=== PATIENT | female | born 1955 | race American Indian/Alaskan Native ===

== ENCOUNTER 2016-08-18 18:26 | Inpatient (IN) | payer MEDICARE ==
[2016-08-18] MEDS ORDERED: NACL 0.9% 1000 ML 1,000 ML IV ONE (20:57)
[2016-08-18] MEDS ORDERED: ZOFRAN IV ONE (20:57)
[2016-08-18] MEDS ORDERED: PEPCID IV ONE (20:57)
[2016-08-18] MEDS ORDERED: BENTYL IM ONE (20:58)
--- NOTE | 2016-08-18 20:59 | Emergency Department Report ---
ED General Adult HPI - General Chief complaint: Abdominal Pain Stated complaint: N/V/D/FAINTING Time Seen by Provider: 08/18/16 20:41 Source: patient, family, RN notes reviewed Mode of arrival: Ambulatory Limitations: No Limitations - History of Present Illness Initial comments: This is a 61-year-old female. She is previously unknown to me. Her primary care doctor is in [facility]. Past medical history includes rheumatoid arthritis, hypertension, congestive heart failure, GERD, neuropathy. She can't recall the name of her crutch maker, she does not know what her ejection fraction is. She reports a colonoscopy last year, which he indicates was "negative." The patient presents to the ER complaining of diffuse abdominal pain, nausea, vomiting and diarrhea. The pain is achy. It is "all over." It increases with palpation, and decreases with rest. The patient and family indicated the patient has vomited over 20 times. They indicate some clear emesis and some red emesis. They also indicate bloody diarrhea. No recent antibiotic use. No recent travel. No chest pain. No shortness of breath. Positive generalized weakness, positive dizziness. Symptoms have been constant for the past day or so, they're getting worse. -: Gradual Location: abdomen Quality: aching Improves with: rest Worsens with: movement Associated Symptoms: fever/chills, loss of appetite, malaise, nausea/vomiting, weakness - Related Data Home Medications Medication Instructions Recorded Confirmed Last Taken Adalimumab [Humira Pen] 40 mg SQ Q2W 08/19/16 08/19/16 Unknown Cyclobenzaprine [Flexeril 10 MG 10 mg PO BID 08/19/16 08/19/16 Unknown TAB] HYDROcodone/APAP 7.5-325 [[place] 1 each PO Q8HR PRN 08/19/16 08/19/16 Unknown 7.5-325 mg TAB] Leflunomide 10 mg PO QDAY 08/19/16 08/19/16 Unknown SUMAtriptan SUCCINATE [SUMAtriptan 100 mg PO BID 08/19/16 08/19/16 Unknown Succinate] Verapamil ER [Calan SR] 240 mg PO QDAY 08/19/16 08/19/16 Unknown busPIRone [Buspar] 15 mg PO BID 08/19/16 08/19/16 Unknown clonazePAM [Klonopin] 1 mg PO BID 08/19/16 08/19/16 Unknown predniSONE [Deltasone] 5 mg PO QDAY 08/19/16 08/19/16 Unknown Previous Rx's Medication Instructions Recorded Last Taken Type Ciprofloxacin HCl [Ciprofloxacin 500 mg PO BID #10 tablet 08/20/16 Unknown Rx TAB] Furosemide [Lasix TAB] 40 mg PO QDAY tablet 08/20/16 Unknown Rx Allergies Allergy/AdvReac Type Severity Reaction Status Date / Time No Known Allergies Allergy Unverified 08/18/16 19:39 ED Review of Systems ROS: Stated complaint: N/V/D/FAINTING Other details as noted in HPI Constitutional: malaise, weakness Eyes: denies: vision change ENT: denies: epistaxis Respiratory: denies: cough, shortness of breath Cardiovascular: denies: chest pain Gastrointestinal: abdominal pain, nausea, vomiting, diarrhea, hematemesis, hematochezia Genitourinary: as per HPI Musculoskeletal: denies: back pain Skin: denies: lesions Neurological: weakness Psychiatric: anxiety ED Past Medical Hx - Past Medical History Previous Medical History?: Yes Hx Hypertension: Yes Hx Arthritis: Yes Additional medical history: neuropathy, - Surgical History Past Surgical History?: Yes Additional Surgical History: Heart surgery - Social History Smoking Status: Former Smoker Substance Use Type: None - Medications Home Medications: Home Medications Medication Instructions Recorded Confirmed Last Taken Type Adalimumab [Humira Pen] 40 mg SQ Q2W 08/19/16 08/19/16 Unknown History Cyclobenzaprine [Flexeril 10 MG 10 mg PO BID 08/19/16 08/19/16 Unknown History TAB] HYDROcodone/APAP 7.5-325 [[place] Rios 1 each PO Q8HR PRN 08/19/16 08/19/16 Unknown History 7.5-325 mg TAB] Leflunomide 10 mg PO QDAY 08/19/16 08/19/16 Unknown History SUMAtriptan SUCCINATE [SUMAtriptan 100 mg PO BID 08/19/16 08/19/16 Unknown History Succinate] Verapamil ER [Calan SR] 240 mg PO QDAY 08/19/16 08/19/16 Unknown History busPIRone [Buspar] 15 mg PO BID 08/19/16 08/19/16 Unknown History clonazePAM [Klonopin] 1 mg PO BID 08/19/16 08/19/16 Unknown History predniSONE [Deltasone] 5 mg PO QDAY 08/19/16 08/19/16 Unknown History Ciprofloxacin HCl [Ciprofloxacin 500 mg PO BID #10 tablet 08/20/16 Unknown Rx TAB] Furosemide [Lasix TAB] 40 mg PO QDAY tablet 08/20/16 Unknown Rx ED Physical Exam - General Limitations: Physical Limitation General appearance: alert, in distress - Head Head exam: Present: atraumatic, normocephalic - Eye Eye exam: Present: normal appearance, EOMI. Absent: nystagmus - ENT ENT exam: Present: mucous membranes dry - Neck Neck exam: Present: normal inspection, full ROM. Absent: tenderness, meningismus - Respiratory Respiratory exam: Present: normal lung sounds bilaterally. Absent: respiratory distress, wheezes, rales, rhonchi, stridor, decreased breath sounds - Cardiovascular Cardiovascular Exam: Present: regular rate, normal rhythm, normal heart sounds. Absent: bradycardia, tachycardia, irregular rhythm, systolic murmur, diastolic murmur, rubs, gallop - GI/Abdominal GI/Abdominal exam: Present: soft, tenderness, normal bowel sounds, other (there is mild diffuse abdominal tenderness, there is no rebound, guarding or peritoneal signs.). Absent: distended, guarding, rebound, rigid, pulsatile mass - Rectal Rectal exam: Present: normal inspection, normal rectal tone, heme (+) stool, other (escorted by Shweta Kamara during rectal exam) - Extremities Exam Extremities exam: Present: normal inspection, full ROM, normal capillary refill. Absent: tenderness, pedal edema, joint swelling, calf tenderness - Back Exam Back exam: Present: normal inspection, full ROM. Absent: tenderness, CVA tenderness (R), CVA tenderness (L), muscle spasm, paraspinal tenderness, vertebral tenderness - Neurological Exam Neurological exam: Present: alert, oriented X3, other (Extraocular movements intact. Tongue midline. No facial droop. Facial sensation intact to light touch in the V1, V2, V3 distribution bilaterally. 5 and 5 strength in 4 extremities.. Sensation is intact to light touch in 4 extremities.). Absent: motor sensory deficit - Psychiatric Psychiatric exam: Present: anxious - Skin Skin exam: Present: warm, dry, intact, normal color. Absent: rash ED Course Vital Signs 08/18/16 08/18/16 08/18/16 19:33 20:57 21:03 Temperature 98.1 F 98.9 F Pulse Rate 84 135 H Respiratory 19 Rate Blood Pressure 178/110 O2 Sat by Pulse 98 Oximetry 08/18/16 08/18/16 08/18/16 21:30 22:56 23:00 Temperature Pulse Rate 82 80 Respiratory 16 11 L Rate Blood Pressure 166/93 187/119 189/108 O2 Sat by Pulse 100 100 100 Oximetry 08/18/16 08/19/16 23:30 00:00 Temperature Pulse Rate 87 81 Respiratory 26 H 12 Rate Blood Pressure 180/92 165/88 O2 Sat by Pulse 100 99 Oximetry - Reevaluation(s) Reevaluation #1: 08/18/16 21:36 Differential diagnosis: Colitis, enteritis, diverticulitis, upper GI bleed, Emily-Weir tear, dehydration, though I tried to derangement, anemia, vasomotor nephropathy Assessment and plan: 61-year-old female with diffuse abdominal pain, nausea, vomiting, diarrhea, dehydration, renal insufficiency. Rectal exam is guaiac positive. IV fluids, antiemetic medicine, pain medication, are ordered in addition to noncontrast CT scan of the abdomen and pelvis. We will discuss with gastroenterology. We will admit for further management once her initial diagnostics have returned. Reevaluation #2: 08/18/16 22:33 Case discussed with gastroenterology, Dr. Willoughby, he agrees with plan, will see the patient is a consult. case d/w [facility] physician Dr Braun, who accepts patient to his service ED Medical Decision Making - Lab Data Result diagrams: 08/20/16 06:10 08/20/16 06:10 Vital Signs 08/18/16 08/18/16 19:33 20:57 Temperature 98.1 F 98.9 F Pulse Rate 84 Blood Pressure 178/110 O2 Sat by Pulse 98 Oximetry Lab Results 08/18/16 Range/Units 19:58 Sodium 138 (137-145) mmol/L Potassium 3.6 (3.6-5.0) mmol/L Chloride 99.2 (98-107) mmol/L Carbon Dioxide 17 L (22-30) mmol/L Anion Gap 25 mmol/L BUN 20 H (7-17) mg/dL Creatinine 1.7 H (0.7-1.2) mg/dL Estimated GFR 37 ml/min BUN/Creatinine Ratio 11.76 % Glucose 114 H (65-100) mg/dL Calcium 9.7 (8.4-10.2) mg/dL Total Bilirubin 0.3 (0.1-1.2) mg/dL AST 33 (5-40) units/L ALT 25 (7-56) units/L Alkaline Phosphatase 79 (35-129) units/L Total Protein 8.0 (6.3-8.2) g/dL Albumin 4.0 (3.9-5) g/dL Albumin/Globulin Ratio 1.0 % Lipase 30 (13-60) units/L - EKG Data When compared to previous EKG there are: previous EKG unavailable 08/18/16 23:20 EKG demonstrates normal sinus, 81 beats per minute, borderline left axis deviation, left ventricular hypertrophy, QTC 497 ms, abnormal EKG, not morphologically consistent with STEMI. - Radiology Data Radiology results: report reviewed, image reviewed Noncontrast CT scan of the abdomen and pelvis with numerous chronic findings, no acute disease or pathology. The opacified GI tract appears to be unremarkable. Critical care attestation.: If time is entered above; I have spent that time in minutes in the direct care of this critically ill patient, excluding procedure time. ED Disposition Clinical Impression: GI bleed, Renal insufficiency Disposition: OP ADMITTED IP TO THIS HOSP Is pt being admited?: Yes Condition: Good
[2016-08-18 21:12] LABS: BUN/Creatinine Ratio 11.76; Bilirubin,Total 0.3 mg/dL (0.1-1.2); Calcium 9.7 mg/dL (8.4-10.2); Chloride 99.2 mmol/L (98-107); Potassium 3.6 mmol/L (3.6-5.0)
[2016-08-18 21:48] LABS: Hematocrit 38.9 % (30.3-42.9); Hemoglobin 12.1 gm/dl (10.1-14.3); Mean Corpuscular HGB Conc 31 % (30-34); Mean Corpuscular Volume 70 fl (79-97); Platelet Count 291 K/mm3 (140-440); Red Blood Count 5.54 M/mm3 (3.65-5.03); Red Cell Distribution Width 19.2 % (13.2-15.2); White Blood Count 14.2 K/mm3 (4.5-11.0)
[2016-08-18 21:50] LABS: Mean Corpuscular Hemoglobin 22 pg (28-32)
[2016-08-18 21:57] LABS: INR 1.13 (0.87-1.13)
--- NOTE | 2016-08-18 22:31 | Cat Scan Report ---
FINAL REPORT PROCEDURE: CT abdomen and pelvis without contrast. TECHNIQUE: Computerized axial tomography of the abdomen and pelvis was performed without intravenous contrast. This study is performed without intravascular contrast material and its sensitivity for abdominal and pelvic pathology, including neoplasms, inflammation, abscess, free fluid, thrombosis, arterial dissection and infarction, is reduced compared with a contrast enhanced study. HISTORY: Abdominal pain, nausea and vomiting. COMPARISON: No prior studies are available for comparison. FINDINGS: There is some minimal scarring versus subsegmental atelectasis in both lung bases. There are no pleural effusions. There is a small cyst in the right middle lobe. The heart size is normal. The liver is grossly normal. The spleen is small with a calcification consistent with previous granulomatous disease. The pancreas is grossly normal. Cholecystectomy clips are present. There is moderate extrahepatic biliary dilatation. The adrenal glands are not enlarged. Both kidneys appear normal in size and configuration. The abdominal aorta has a normal caliber. There is no retroperitoneal adenopathy. The unopacified gastrointestinal tract is unremarkable. The bladder appears normal. The uterus has been removed. The regional skeleton appears intact. Median sternotomy wires are noted. There is moderate disc space narrowing at L5-S1. There is a posterior disc protrusion at L5-S1 which is better evaluated by MRI scanning. IMPRESSION: Previous cholecystectomy and hysterectomy. Extrahepatic biliary dilatation status post cholecystectomy. Degenerative disc disease at L5-S1. No definite signs of acute disease in the abdomen or pelvis.
[2016-08-18] MEDS ORDERED: MAGNESIUM SULFATE 2GM/50ML 2 GM/50 ML BAG IV ONE (22:33)
[2016-08-18 22:35] LABS: Basophils % (Manual) 0 % (0.0-1.8); Blastocytes % (Manual) 0 %; Eosinophils % (Manual) 0 % (0.0-4.3)
[2016-08-18 22:38] LABS: Anisocytosis 1+; Diff Status Complete; Hypochromasia 1+; Ovalocytes 1+; Platelet Estimate Consistent w Auto; Poikilocytosis 1+; Target Cells 1+
[2016-08-18] MEDS ORDERED: MILK OF MAGNESIA PO PRN (23:16)
[2016-08-18] MEDS ORDERED: TYLENOL PO PRN (23:16)
[2016-08-18] MEDS ORDERED: ZOFRAN IV PRN (23:16)
[2016-08-18] MEDS ORDERED: DULCOLAX PR PRN (23:16)
[2016-08-18] MEDS ORDERED: APRESOLINE IV PRN (23:19)
[2016-08-18] MEDS ORDERED: REGLAN IV ONE (23:39)
[2016-08-18] MEDS ORDERED: REGLAN ONE (23:56)
--- NOTE | 2016-08-19 00:19 | History and Physical Report ---
History of Present Illness Date of examination: 08/19/16 Date of admission: 08/18/16 23:16 Chief complaint: Abdominal pain vomitings and bloody stools for 1 day History of present illness: 61-year-old -[place] female with history of hypertension peripheral neuropathy depression and hyperlipidemia and status post heart valve replacement Who lives in a [place], [place] presents to the emergency department with complaints of worsening abdominal pain vomitings and bloody stools since yesterday. Associated with chills but denies any fever he also has diarrhea. Present symptoms started after she ate salad and fish in a restaurant yesterday She denies any sore throat dysphagia nasal congestion or headache Denies any chest pain shortness of breath palpitations or syncope Denies any dysuria or urinary frequency or flank pain Past History Past Medical History: arthritis (rheumatoid arthritis), hypertension, hyperlipidemia, other (depression, peripheral neuropathy) Past Surgical History: valve replacement (details unclear), cholecystectomy, hysterectomy Social history: no significant social history Family history: no significant family history Medications and Allergies Allergies Allergy/AdvReac Type Severity Reaction Status Date / Time No Known Allergies Allergy Unverified 08/18/16 19:39 Active Meds: Active Medications Acetaminophen (Tylenol) 650 mg PO Q4H PRN PRN Reason: Pain MILD(1-3)/Fever >100.5/GALLEGOS Bisacodyl (Dulcolax) 10 mg [place] QDAY PRN PRN Reason: Constipation unrelieved by MOM Hydralazine HCl (Apresoline) 20 mg IV Q6H PRN PRN Reason: Hypertension Dextrose/Sodium Chloride (D5/0.45ns) 1,000 mls @ 75 mls/hr IV DIRECT ALBINO Levofloxacin/Dextrose (Levaquin 500mg/100ml) 500 mg in 100 mls @ 100 mls/hr IV Q24HR ALBINO PRN Reason: Protocol Stop: 08/19/16 10:59 Metronidazole (Flagyl 500 Mg/100 Ml) 500 mg in 100 mls @ 100 mls/hr IV Q8HR ALBINO Levofloxacin/Dextrose (Levaquin 250mg/50ml) 250 mg in 50 mls @ 50 mls/hr IV Q24HR ALBINO Magnesium Hydroxide (Milk Of Magnesia) 30 ml PO Q4H PRN PRN Reason: Constipation Morphine Sulfate (Morphine) 2 mg IV Q4H PRN PRN Reason: Pain, Moderate (4-6) Ondansetron HCl (Zofran) 4 mg IV Q6H PRN PRN Reason: N/V unrelieved by Reglan Pantoprazole Sodium (Protonix) 40 mg IV DAILY ALBINO Review of Systems All systems: negative (review of systems as stated above in the history of present illness otherwise noncontributory) Exam - Constitutional Vitals: Temp Pulse Resp BP Pulse Ox 98.9 F 81 12 165/88 99 08/18/16 20:57 08/19/16 00:00 08/19/16 00:00 08/19/16 00:00 08/19/16 00:00 General appearance: Present: no acute distress, well-nourished - EENT Eyes: Present: PERRL, EOM intact ENT: hearing intact, clear oral mucosa - Neck Neck: Present: supple, normal ROM. Absent: masses or JVD - Respiratory Respiratory effort: normal Respiratory: bilateral: CTA - Cardiovascular Rhythm: regular Heart Sounds: Present: S1 & S2 - Extremities Extremities: No edema - Abdominal General gastrointestinal: Present: soft, tender (mild diffuse tenderness), non- distended. Absent: rigid, hepatomegaly, splenomegaly - Rectal Rectal Exam: deferred - Integumentary Integumentary: Present: clear - Musculoskeletal Musculoskeletal: strength equal bilaterally - Psychiatric Psychiatric: appropriate mood/affect - Neurologic Neurologic: no focal deficits, moves all extremities Results - Labs CBC & Chem 7: 08/18/16 21:18 08/18/16 19:58 Assessment and Plan - Patient Problems (1) Acute gastroenteritis Current Visit: Yes Status: Acute Plan to address problem: CT of the abdomen findings reviewed Based on the history. The patient with empiric antibiotics for suspected infection in the GI tract GI consult was requested Decub the patient nothing by mouth (2) Acute kidney injury Current Visit: Yes Status: Acute Plan to address problem: Most likely acute IV fluids and monitor renal function (3) Hypertension Current Visit: Yes Status: Acute Qualifiers: Hypertension type: H Plan to address problem: We will order intravenous antihypertensives on as-needed basis, as the patient is nothing by mouth at this time (4) GI bleed Current Visit: Yes Status: Acute Qualifiers: GI bleed type/associated pathology: G Gastritis type: G Plan to address problem: Monitor H&H Await GI evaluation Start empirically on proton pump inhibitor
[2016-08-19 00:36] LABS: Bilirubin,Urine NEG (Negative); Blood,Urine MOD (Negative); Ketones,Urine 20 mg/dL (Negative); Leukocyte Esterase,Urine MOD (Negative); Mucus,Urine FEW /HPF; Nitrite,Urine NEG (Negative); Urobilinogen,Urine < 2.0 mg/dL (<2.0)
[2016-08-19] MEDS: D5/0.45NS 1,000 ML IV SCH (02:06)
[2016-08-19 05:55] LABS: Basophils % (Auto) 0.8 % (0.0-1.8); Eosinophils % (Auto) 0.5 % (0.0-4.3); Hematocrit 37.9 % (30.3-42.9); Hemoglobin 11.8 gm/dl (10.1-14.3); Mean Corpuscular HGB Conc 31 % (30-34); Mean Corpuscular Hemoglobin 22 pg (28-32); Mean Corpuscular Volume 71 fl (79-97); Platelet Count 272 K/mm3 (140-440); Red Blood Count 5.38 M/mm3 (3.65-5.03); Red Cell Distribution Width 19.2 % (13.2-15.2); White Blood Count 11.4 K/mm3 (4.5-11.0)
[2016-08-19 05:58] LABS: Anion Gap 27 mmol/L; Blood Urea Nitrogen 11 mg/dL (7-17); Carbon Dioxide 17 mmol/L (22-30); Chloride 98.6 mmol/L (98-107); Glucose 119 mg/dL (65-100); Potassium 3.3 mmol/L (3.6-5.0); Sodium 139 mmol/L (137-145)
[2016-08-19] MEDS: FLAGYL 500 MG/100 ML 500 MG/100 ML BAG IV SCH ×2 (06:16→13:30)
[2016-08-19] MEDS: MORPHINE IV PRN ×2 (06:42→11:48)
[2016-08-19] MEDS: KCL 10MEQ/100ML 10 MEQ/100 ML BAG IV SCH ×2 (09:37→17:31)
--- NOTE | 2016-08-19 09:39 | Admit Criteria Form ---
Admission Criteria Documentation: GASTROINTESTINAL BLEEDING, LOWER Clinical Indications for Admission to Inpatient Care ( Place 'X' for any and all applicable criteria): Admission is indicated for ANY ONE of the following(1)(2)(3)(4)(5): [ ]I. Active gross bleeding per rectum [X]II. Inpatient admission required rather than observation care (Also use Gastrointestinal Bleeding, Lower: Observation Care as appropriate) because of ANY ONE of the following: [ ]a) Hemodynamic instability that is severe or persistent [ ]b) Anemia requiring inpatient admission as indicated by ALL of the following: [ ]1) Presence of significant clinical finding indicated by ANY ONE of the following: [ ]A. Tachycardia for age [ ]B. Orthostatic vital sign changes [ ]C. Cognitive impairment [ ]D. Heart failure [ ]E. Chest pain [ ]F. Exertional dyspnea [ ]G. Other findings suggesting inadequate perfusion (eg, peripheral or myocardial ischemia, end organ dysfunction) [ ]2) Initial (eg, emergency department, observation care) treatment with transfusion or volume replacement is judged inappropriate (due to severity of the finding) or has been ineffective [ ]c) Severe pain requiring acute inpatient management [ ]d) Absent bowel sounds with complete ileus [ ]e) Signs of intestinal obstruction or peritonitis [A] [ ]f) High-risk low platelet count [ ]g) Severe electrolyte abnormalities requiring inpatient care [ ]h) Acute renal failure [ ]i) High fever or infection requiring inpatient admission as indicated by ANY ONE of the following(8)(9): [ ]1) Appropriate outpatient or observation care antimicrobial treatment unavailable, not effective, or not feasible Documented bacteremia [ ]2) Documented bacteremia [ ]3) Temperature greater than 104.9 degrees F ( 40.5 degrees C) (oral) [ ]4) Temperature greater than 103.1 degrees F ( 39.5 degrees C) (oral) or less than 96.8 degrees F (36 degrees C) (rectal) that does not respond to all emergency treatment measures [ ]j) IV fluid to replace significant ongoing losses ( greater than 3 L/m2 per day) [ ]k) Immediate inpatient surgery needed [ ]l) Parenteral nutrition regimen that must be implemented on inpatient basis [X]m) Other condition, treatment or monitoring requiring inpatient admission [ ]III. Unstable comorbid illness (renal, hepatic, pulmonary, hematologic, neurologic, or cardiac) [ ]IV. Failure to control bleeding after colonoscopy [ ]V. Coagulopathy [ ]. Suspected or known ischemic colitis(6) [ ]VII. Previous aortic graft placement or known aortic aneurysm Extended stay beyond goal length of stay may be needed for(3)(4)(28): [ ]a) Emergency surgery [ ]b) Coagulation abnormalities(26) [ ]c) Recurrent or persistent bleeding, continued vital sign instability(27)( 28) [ ]d) Active comorbidities (eg, renal insufficiency, heart failure, pre- existing liver disease) The original [employer] content created by [employer] has been revised. The portions of the content which have been revised are identified through the use of italic text or in bold, and [facility] has neither reviewed nor approved the modified material. All other unmodified content is copyright [employer]. Please see references footnoted in the original [employer] edition 2016 Admission Criteria Met: Yes
[2016-08-19] MEDS ORDERED: PROTONIX IV SCH (10:00)
[2016-08-19] MEDS ORDERED: LEVAQUIN 500MG/100ML 500 MG/100 ML BAG IV SCH (10:00)
--- NOTE | 2016-08-19 10:26 | Progress Note ---
Assessment and Plan Assessment and plan: Acute GI bleed with bloody stools. On Protonix, iv fluids. GI consulted. Likely endoscopy today. H/H is stable 11.8/37.9 Rheumatoid arthritis. On Humira Hypertension. BP stable Hyperlipidemia Migraine headache. On Imitrex prn. DVT prophylaxis with SCDs only. No anticoagulation because of GI bleed Full CODE STATUS History Interval history: Hayder pain, Vomiting Bloody stools Hospitalist Physical - Physical exam Narrative exam: Gen: Not in acute distress, HEENT: Normocephalic, atraumatic Neck: supple, no JVD Lungs:Lungs clear to auscultation, bilaterally, no crackles or wheeze Heart S1-S2 regular, no murmurs rubs or gallop, Abdomen: soft, non tender, non distended, normal bowel sounds , Ext: No edema, clubbing or cyanosis. Neuro: Awake.alert, oriented x 3, no focal neurologic sign - Constitutional Vitals: Temp Pulse Resp BP Pulse Ox 99.3 F 82 20 141/80 99 08/19/16 01:42 08/19/16 02:00 08/19/16 06:42 08/19/16 01:42 08/19/16 00:00 General appearance: Present: no acute distress, well-nourished Results - Labs CBC & Chem 7: 08/19/16 04:49 08/19/16 04:49 Labs: Laboratory Last Values WBC 11.4 K/mm3 (4.5-11.0) H 08/19/16 04:49 RBC 5.38 M/mm3 (3.65-5.03) H 08/19/16 04:49 Hgb 11.8 gm/dl (10.1-14.3) 08/19/16 04:49 Hct 37.9 % (30.3-42.9) 08/19/16 04:49 MCV 71 fl (79-97) L 08/19/16 04:49 MCH 22 pg (28-32) L 08/19/16 04:49 MCHC 31 % (30-34) 08/19/16 04:49 RDW 19.2 % (13.2-15.2) H 08/19/16 04:49 Plt Count 272 K/mm3 (140-440) 08/19/16 04:49 Lymph % (Auto) 17.0 % (13.4-35.0) 08/19/16 04:49 [place] % (Auto) 11.8 % (0.0-7.3) H 08/19/16 04:49 Eos % (Auto) 0.5 % (0.0-4.3) 08/19/16 04:49 Baso % (Auto) 0.8 % (0.0-1.8) 08/19/16 04:49 Lymph # 1.9 K/mm3 (1.2-5.4) 08/19/16 04:49 [place] # 1.4 K/mm3 (0.0-0.8) H 08/19/16 04:49 Eos # 0.1 K/mm3 (0.0-0.4) 08/19/16 04:49 Baso # 0.1 K/mm3 (0.0-0.1) 08/19/16 04:49 Add Manual Diff Complete 08/18/16 21:18 Total Counted 100 08/18/16 21:18 Seg Neutrophils % 69.9 % (40.0-70.0) 08/19/16 04:49 Seg Neuts % (Manual) 76.0 % (40.0-70.0) H 08/18/16 21:18 Band Neutrophils % 5.0 % 08/18/16 21:18 Lymphocytes % (Manual) 14.0 % (13.4-35.0) 08/18/16 21:18 Reactive Lymphs % (Man) 0 % 08/18/16 21:18 Monocytes % (Manual) 5.0 % (0.0-7.3) 08/18/16 21:18 Eosinophils % (Manual) 0 % (0.0-4.3) 08/18/16 21:18 Basophils % (Manual) 0 % (0.0-1.8) 08/18/16 21:18 Metamyelocytes % 0 % 08/18/16 21:18 Myelocytes % 0 % 08/18/16 21:18 Promyelocytes % 0 % 08/18/16 21:18 Blast Cells % 0 % 08/18/16 21:18 Nucleated RBC % Not Reportable 08/18/16 21:18 Seg Neutrophils # 8.0 K/mm3 (1.8-7.7) H 08/19/16 04:49 Seg Neutrophils # Man 10.8 K/mm3 (1.8-7.7) H 08/18/16 21:18 Band Neutrophils # 0.7 K/mm3 08/18/16 21:18 Lymphocytes # (Manual) 2.0 K/mm3 (1.2-5.4) 08/18/16 21:18 Abs React Lymphs (Man) 0.0 K/mm3 08/18/16 21:18 Monocytes # (Manual) 0.7 K/mm3 (0.0-0.8) 08/18/16 21:18 Eosinophils # (Manual) 0.0 K/mm3 (0.0-0.4) 08/18/16 21:18 Basophils # (Manual) 0.0 K/mm3 (0.0-0.1) 08/18/16 21:18 Metamyelocytes # 0.0 K/mm3 08/18/16 21:18 Myelocytes # 0.0 K/mm3 08/18/16 21:18 Promyelocytes # 0.0 K/mm3 08/18/16 21:18 Blast Cells # 0.0 K/mm3 08/18/16 21:18 WBC Morphology Not Reportable 08/18/16 21:18 Hypersegmented Neuts Not Reportable 08/18/16 21:18 Hyposegmented Neuts Not Reportable 08/18/16 21:18 Hypogranular Neuts Not Reportable 08/18/16 21:18 Smudge Cells Not Reportable 08/18/16 21:18 Toxic Granulation Not Reportable 08/18/16 21:18 Toxic Vacuolation Not Reportable 08/18/16 21:18 Dohle Bodies Not Reportable 08/18/16 21:18 Pelger-Huet Anomaly Not Reportable 08/18/16 21:18 Angela Rods Not Reportable 08/18/16 21:18 Platelet Estimate Consistent w auto 08/18/16 21:18 Clumped Platelets Not Reportable 08/18/16 21:18 Plt Clumps, EDTA Not Reportable 08/18/16 21:18 Large Platelets Not Reportable 08/18/16 21:18 Giant Platelets Not Reportable 08/18/16 21:18 Platelet Satelliting Not Reportable 08/18/16 21:18 Plt Morphology Comment Not Reportable 08/18/16 21:18 RBC Morphology Not Reportable 08/18/16 21:18 Dimorphic RBCs Not Reportable 08/18/16 21:18 Polychromasia Not Reportable 08/18/16 21:18 Hypochromasia 1+ 08/18/16 21:18 Poikilocytosis 1+ 08/18/16 21:18 Anisocytosis 1+ 08/18/16 21:18 Microcytosis Not Reportable 08/18/16 21:18 Macrocytosis Not Reportable 08/18/16 21:18 Spherocytes Not Reportable 08/18/16 21:18 Pappenheimer Bodies Not Reportable 08/18/16 21:18 Sickle Cells Not Reportable 08/18/16 21:18 Target Cells 1+ 08/18/16 21:18 Tear Drop Cells Not Reportable 08/18/16 21:18 Ovalocytes 1+ 08/18/16 21:18 Helmet Cells Not Reportable 08/18/16 21:18 Landa-Cromberg Bodies Not Reportable 08/18/16 21:18 [place] Rings Not Reportable 08/18/16 21:18 Marcella Cells Not Reportable 08/18/16 21:18 Bite Cells Not Reportable 08/18/16 21:18 Crenated Cell Not Reportable 08/18/16 21:18 Elliptocytes Not Reportable 08/18/16 21:18 Acanthocytes (Spur) Not Reportable 08/18/16 21:18 Rouleaux Not Reportable 08/18/16 21:18 Hemoglobin C Crystals Not Reportable 08/18/16 21:18 Schistocytes Not Reportable 08/18/16 21:18 Malaria parasites Not Reportable 08/18/16 21:18 Luis E Bodies Not Reportable 08/18/16 21:18 Hem Pathologist Commnt No 08/18/16 21:18 PT 14.4 Sec. (12.2-14.9) 08/18/16 21:18 INR 1.13 (0.87-1.13) 08/18/16 21:18 Sodium 139 mmol/L (137-145) 08/19/16 04:49 Potassium 3.3 mmol/L (3.6-5.0) L 08/19/16 04:49 Chloride 98.6 mmol/L (98-107) 08/19/16 04:49 Carbon Dioxide 17 mmol/L (22-30) L 08/19/16 04:49 Anion Gap 25 mmol/L 08/18/16 19:58 BUN 11 mg/dL (7-17) 08/19/16 04:49 Creatinine 1.1 mg/dL (0.7-1.2) 08/19/16 04:49 Estimated GFR > 60 ml/min 08/19/16 04:49 BUN/Creatinine Ratio 10.00 % 08/19/16 04:49 Glucose 119 mg/dL (65-100) H 08/19/16 04:49 Lactic Acid 3.4 mmol/L (0.7-2.0) H* 08/18/16 21:18 Calcium 9.0 mg/dL (8.4-10.2) 08/19/16 04:49 Magnesium 1.6 mg/dL (1.7-2.3) L 08/18/16 21:18 Total Bilirubin 0.3 mg/dL (0.1-1.2) 08/18/16 19:58 AST 33 units/L (5-40) 08/18/16 19:58 ALT 25 units/L (7-56) 08/18/16 19:58 Alkaline Phosphatase 79 units/L (35-129) 08/18/16 19:58 Total Protein 8.0 g/dL (6.3-8.2) 08/18/16 19:58 Albumin 4.0 g/dL (3.9-5) 08/18/16 19:58 Albumin/Globulin Ratio 1.0 % 08/18/16 19:58 Lipase 30 units/L (13-60) 08/18/16 19:58 Urine Color Yellow (Yellow) 08/19/16 00:07 Urine Turbidity Clear (Clear) 08/19/16 00:07 Urine pH 5.0 (5.0-7.0) 08/19/16 00:07 Ur Specific [place] 1.013 (1.003-1.030) 08/19/16 00:07 Urine Protein 30 mg/dl mg/dL (Negative) 08/19/16 00:07 Urine Glucose (UA) Neg mg/dL (Negative) 08/19/16 00:07 Urine Ketones 20 mg/dL (Negative) 08/19/16 00:07 Urine Blood Mod (Negative) 08/19/16 00:07 Urine Nitrite Neg (Negative) 08/19/16 00:07 Urine Bilirubin Neg (Negative) 08/19/16 00:07 Urine Urobilinogen < 2.0 mg/dL (<2.0) 08/19/16 00:07 Ur Leukocyte Esterase Mod (Negative) 08/19/16 00:07 Urine WBC (Auto) 1.0 /HPF (0.0-6.0) 08/19/16 00:07 Urine RBC (Auto) 1.0 /HPF (0.0-6.0) 08/19/16 00:07 U Epithel Cells (Auto) 9.0 /HPF (0-13.0) 08/19/16 00:07 Amorphous Crystals 1+ 08/19/16 00:07 Urine Mucus Few /HPF 08/19/16 00:07 Blood Type A POSITIVE 08/18/16 21:33 Antibody Screen TNR 08/18/16 21:33 TRINA Antibody Screen Negative 08/18/16 21:33
[2016-08-19] MEDS ORDERED: NORCO 7.5/325 PO PRN (11:42)
[2016-08-19] MEDS ORDERED: LEFLUNOMIDE 10 MG PO SCH (11:45)
[2016-08-19] MEDS: IMITREX PO PRN ×2 (14:37→20:29)
[2016-08-19] MEDS: CALAN SR PO SCH (14:54)
[2016-08-19] MEDS: BUSPAR PO SCH ×2 (15:10→22:26)
[2016-08-19] MEDS: LASIX PO SCH (15:10)
[2016-08-19] MEDS: DELTASONE PO SCH (17:30)
[2016-08-19] MEDS: FLEXERIL PO SCH ×2 (17:31→22:26)
[2016-08-20] MEDS: FLAGYL 500 MG/100 ML 500 MG/100 ML BAG IV SCH ×2 (00:26→05:57)
[2016-08-20] MEDS: D5/0.45NS 1,000 ML IV SCH (00:32)
--- NOTE | 2016-08-20 02:37 | Consultation ---
REFERRING PHYSICIAN: Jose Daley MD INDICATION: 1. Nausea, vomiting. 2. Abdominal pain. HISTORY OF PRESENT ILLNESS: The patient is a 61-year-old black female who is being seen by GI for GI complaints. The patient has a history of hypertension, peripheral neuropathy, depression, high cholesterol as well as status post heart valve replacement. The patient reports that she was visiting from [place], [place], when after a solid meal, she developed abdominal pain, nausea, vomiting with bloody stools. The patient reports some mild chills. She denies any sick contacts. She reports no weight loss. She reports some abdominal cramping. She reports last colonoscopy was 1-2 years ago was benign. The patient subsequently came to the Emergency Room, was evaluated with CT scan being benign, but was admitted. Since that time, the patient reports she felt much better. Denies any other specific complaints. PAST MEDICAL HISTORY: 1. Arthritis. 2. Hypertension. 3. High cholesterol. 4. Depression. PAST SURGICAL HISTORY: 1. Status post heart valve replacement. 2. Status post cholecystectomy. 3. Status post hysterectomy. MEDICATIONS: See chart. ALLERGIES: No known drug allergies. SOCIAL HISTORY: Denies alcohol, tobacco, or IV drug abuse. FAMILY HISTORY: Negative for colon cancer, IBD, or liver disease. REVIEW OF SYSTEMS: GENERAL: Reports mild weakness. HEENT: No visual complaints or tinnitus. PULMONARY: No shortness of breath. CARDIOVASCULAR: No chest pain. GASTROINTESTINAL: Reports abdominal pain. All points of 13-point review of systems done, otherwise negative. PHYSICAL EXAMINATION: VITAL SIGNS: Temperature 97.0, pulse 90, respirations 20, blood pressure 140/90. GENERAL: Fairly nourished female in no acute distress. HEENT: Pupils equal, round, reactive to light and accommodation. Extraocular muscles intact. PULMONARY: Clear to auscultation bilaterally. CARDIOVASCULAR: Regular rate rhythm. Normal S1, S2. ABDOMEN: Positive bowel sounds, soft. SKIN: No obvious rashes. LABORATORY DATA: Pertinent for white count of 11.4, hemoglobin and hematocrit of 11.8 and 37.9, platelet count of 272. Chem-7 within normal limits. LFTs within normal limits. CT scan showed no significant GI related pathology. ASSESSMENT AND PLAN: A 61-year-old black female presented with one day of nausea, vomiting, abdominal pain with somewhat bloody stools after having a meal. The patient otherwise is doing well. Her symptoms seemed to be improving. She is tolerating clear liquid diet. Symptoms suggest gastroenteritis. PLAN: 1. Advance diet as tolerated. 2. Hydration. 3. Antiemetics and pain medications p.r.n. 4. No acute indication for antibiotics at this time, but continue Levaquin and Flagyl started by the primary team. 5. Stable in a.m. and tolerating p.o., okay to discharge from GI standpoint. JOB# [id number] [facility] [place]ITALAl[facility]
[2016-08-20 08:06] LABS: Hematocrit 36.7 % (30.3-42.9); Hemoglobin 11.4 gm/dl (10.1-14.3); Mean Corpuscular HGB Conc 31 % (30-34); Mean Corpuscular Hemoglobin 22 pg (28-32); Mean Corpuscular Volume 70 fl (79-97); Platelet Count 272 K/mm3 (140-440); Red Blood Count 5.22 M/mm3 (3.65-5.03); Red Cell Distribution Width 19.3 % (13.2-15.2); White Blood Count 8.7 K/mm3 (4.5-11.0)
[2016-08-20 08:14] LABS: BUN/Creatinine Ratio 8.33; Calcium 9.3 mg/dL (8.4-10.2); Chloride 102.2 mmol/L (98-107); Potassium 3.5 mmol/L (3.6-5.0)
--- NOTE | 2016-08-20 08:15 | Discharge Summary ---
Providers - Providers Date of Admission: 08/18/16 23:16 Date of discharge: 08/20/16 Attending physician: CHRISTINE BHATT Primary care physician: KYLE MOHAN MD Hospitalization Condition: Good Disposition: DISCHARGED TO HOME OR SELFCARE - Discharge Diagnoses (1) Acute gastroenteritis Status: Acute (2) Acute kidney injury Status: Acute (3) Hypertension Status: Acute Qualifiers: Hypertension type: H (4) ATN (acute tubular necrosis) Status: Acute Core Measure Documentation - Palliative Care Palliative Care/ Comfort Measures: Not Applicable Exam - Constitutional Vitals: Temp Pulse Resp BP Pulse Ox 99 F 97 H 18 137/84 93 08/19/16 23:00 08/19/16 23:00 08/20/16 00:05 08/19/16 23:00 08/20/16 00:05 Plan Activity: no restrictions Diet: low fat, low cholesterol, low salt Additional Instructions: 1.Follow up with PCP in 1 week Follow up with: PRIMARY CARE, [Primary Care Provider] - 3-5 Days Prescriptions: Ciprofloxacin HCl [Ciprofloxacin TAB] 500 mg PO BID #10 tablet
[2016-08-20] MEDS ORDERED: K-DUR PO ONE (08:30)
[2016-08-20] MEDS: BUSPAR PO SCH (09:15)
[2016-08-20] MEDS: CALAN SR PO SCH (09:16)
[2016-08-20] MEDS: DELTASONE PO SCH (09:17)
[2016-08-20] MEDS: FLEXERIL PO SCH (09:18)
[2016-08-20] MEDS: LASIX PO SCH (09:18)
--- NOTE | 2016-08-20 09:18 | Gastroenterology Progress Note ---
Assessment and Plan GI: mild resolving gastroenteritis - advance diet - ok to d/c - will sign off Subjective Date of service: 08/20/16 Interval history: - no problems overnight Objective - Constitutional Vitals: Temp Pulse Resp BP Pulse Ox 98.5 F 102 H 18 144/90 98 08/20/16 08:18 08/20/16 08:18 08/20/16 08:18 08/20/16 08:18 08/20/16 08:18 General appearance: no acute distress - Respiratory Respiratory: bilateral: CTA - Cardiovascular Rhythm: regular Heart Sounds: Present: S1 & S2 - Gastrointestinal General gastrointestinal: Present: soft, non-tender, non-distended - Labs CBC & Chem 7: 08/20/16 06:10 08/20/16 06:10 Labs: Laboratory Results - last 24 hr 08/19/16 08/20/16 08/20/16 16:28 06:10 06:10 WBC 8.7 RBC 5.22 H Hgb 11.4 Hct 36.7 MCV 70 L MCH 22 L MCHC 31 RDW 19.3 H Plt Count 272 Sodium 142 Potassium 3.5 L Chloride 102.2 Carbon Dioxide 20 L Anion Gap 23 BUN 10 Creatinine 1.2 Estimated GFR 55 BUN/Creatinine Ratio 8.33 Glucose 93 Calcium 9.3 Magnesium 2.2
[2016-08-20] MEDS ORDERED: LEVAQUIN 500MG/100ML 500 MG/100 ML BAG IV SCH (10:00)
[2016-08-20] MEDS ORDERED: LEFLUNOMIDE 10 MG PO SCH (10:00)
[2016-08-20] MEDS ORDERED: NON-FORMULARY (Clonazepam [Klonopin] 1 MG) PO SCH (10:00)
[2016-08-20] MEDS ORDERED: LEVAQUIN 250MG/50ML 250 MG/50 ML BAG IV SCH (10:00)
[2016-08-20 14:05] VITALS: BP 137/87
== END 2016-08-20 12:30 | disposition home or self-care (01) | DRG 377 ==
LOC: ED 18:26 → 3A 23:16
PROVIDERS: ADMIT Internal Medicine; ATTEND Internal Medicine
DX: K92.1 Melena (principal); N17.0 Acute kidney failure with tubular necrosis; M06.9 Rheumatoid arthritis, unspecified; I50.9 Heart failure, unspecified; I11.0 Hypertensive heart disease with heart failure; K21.9 Gastro-esophageal reflux disease without esophagitis; K52.9 Noninfective gastroenteritis and colitis, unspecified; G43.909 Migraine, unspecified, not intractable, without status migrainosus; G62.9 Polyneuropathy, unspecified; F32.9 Major depressive disorder, single episode, unspecified; E78.5 Hyperlipidemia, unspecified; E78.00 Pure hypercholesterolemia, unspecified; M19.90 Unspecified osteoarthritis, unspecified site; Z87.891 Personal history of nicotine dependence; Z95.2 Presence of prosthetic heart valve; Z90.49 Acquired absence of other specified parts of digestive tract; Z90.710 Acquired absence of both cervix and uterus
CPT/HCPCS: 36415; 74176; 80048; 80053; 81001; 82140; 82271; 83690; 83735; 85007; 85025; 85027; 85610; 86850; 86900; 86901; 93005; 93010; 96361; 96365; 96372; 96375; C9113; J0500; J1956; J2270; J2405; J2765; J3475; J3480; J7030; J7512